=== PATIENT | male | born 1980 | race Caucasian/White ===

== ENCOUNTER → 2016-06-29 | Day surgery (SDC) | payer MEDICAID ==
[~2016-06-29] VITALS: Ht 177.8 cm; Wt 90.5 kg
[~2016-06-29] MED LIST: ACETAMINOPHEN 325 MG TAB PO PRN; CIPROFLOXACIN/DEXT 400 MG/200 ML IV SCH; DO NOT ADM ANY ANTICOAGULANT DRUGS XX PRN; GLUC1TAB24 PO; INSULIN HUMAN REGULAR 1,000 UNITS/10 ML VIAL SQ PRN; IOHEXOL 350 MG/ML 50 ML BTL (for RAD DIAG) OTHER ONE; LACTATED RINGER'S 1000 ML INJ 1,000 ML IV ONE; LACTATED RINGER'S 1000 ML IV SCH; LISI-515 PO; METOPROLOL TARTRATE 25 MG TAB PO PRN; MIDAZOLAM HCL 2 MG/2 ML VIAL ONE; ONDANSETRON HCL 4 MG/2 ML VIAL IV PUSH ONE; ONDANSETRON HCL 4 MG/2 ML VIAL IV PUSH PRN; PROPOFOL 200 MG/20 ML AMP IV ONE; SODIUM CHLORID 0.9% 500 ML IV SCH; TRAM50TA PO
[2016-06-29 07:53] VITALS: BP 132/76; PULSE 66; RESP 18; TEMP 97.6; O2SAT 100
[2016-06-29 07:56] LABS: AUTOMATED NEUTROPHIL # 3.1 TH/MM3 (1.8-7.7); BASOPHIL % 0.9 % (0.0-2.0); EOSINOPHIL # 0.2 TH/MM3 (0-0.4); HEMATOCRIT 43.2 % (39.0-51.0); HEMO FLAGS DIFF FINAL; LYMPH % 29.2 % (9.0-44.0); LYMPHOCYTE # 1.6 TH/MM3 (1.0-4.8); MEAN CELL VOLUME 84.2 FL (80.0-100.0); MEAN CORPUSCULAR HEMOGLOBIN 27.3 PG (27.0-34.0); MEAN CORPUSCULAR HGB CONC 32.4 % (32.0-36.0); MONO % 11.1 % (0.0-8.0); NEUT % 54.8 % (16.0-70.0); PLATELET COUNT 172 TH/MM3 (150-450); RED BLOOD COUNT 5.13 MIL/MM3 (4.50-5.90); RED CELL DISTRIBUTION WIDTH 14.9 % (11.6-17.2); WHITE BLOOD COUNT 5.6 TH/MM3 (4.0-11.0)
--- NOTE | 2016-06-29 09:31 | PD.OP ---
Operative Report Date of Surgery: Jun 29, 2016 Preoperative Diagnosis: Microscopic hematuria Postoperative Diagnosis: Same Procedure: Cystoscopy with bilateral retrograde study Anesthesia: Gen. LMA Surgeon: Regulo Jackman Grain Drier Operator(s): none Resident Surgeon: none Operation and Findings: This is a 35-year-old male presented the office with microscopic hematuria. Renal bladder ultrasound was negative. Patient review cystoscopy in the office and requested to be placed under anesthesia to perform procedure. The patient is brought to the operating room identify myself as Mayo Lorenz. He received preprocedure antibiotics and was placed in the dorsal lithotomy position. He was prepped and draped in usual sterile fashion and received general LMA anesthesia. 19 Upper Sor[place] cystoscope was inserted in the bladder ramirez cystoscopy did not reveal any abnormalities. A urine cytology was sent at this time. A 5 Upper Sor[place] catheter was inserted into the left ureteral orifice and a retrograde study was performed demonstrating a normal ureter and left collecting system. This was again repeated on the right side demonstrating no abnormalities. The bladder was evacuated and he was awoken and transferred hemorrhage stable condition. He'll follow-up in the office in 1 month to review cytology results. Regulo Jackman DO Jun 29, 2016 09:31
[2016-06-29 10:50] VITALS: BP 120/71; PULSE 52; RESP 18; TEMP 97.7; O2SAT 98
== END | disposition home or self-care (01) ==
LOC: HSDC 07:07
PROVIDERS: ATTEND Urology
DX: R31.21 Asymptomatic microscopic hematuria (principal); Z87.442 Personal history of urinary calculi; Z87.891 Personal history of nicotine dependence
CPT/HCPCS: 00910; 52005; 74420; 85025; C1769; J0744; J2250; J2405; J3010; J7120; Q9967; 88112